=== PATIENT | male | born 1955 | race Caucasian/White ===

== ENCOUNTER 2017-04-03 22:24 | Observation (INO) | payer BC ==
[2017-04-03] MEDS ORDERED: Aspirin 81 MG Tab.Chew PO ONE (22:34)
[2017-04-03 23:22] LABS: CHLORIDE,CL 103 mmol/L (98-110)
[2017-04-03 23:23] LABS: SODIUM,NA 139 mmol/L (136-146)
[2017-04-04] MEDS ORDERED: Levofloxacin/Dextrose 5%-Water 750 MG in Premix Bag 1 BAG IV ONE (00:52)
[2017-04-04] MEDS ORDERED: Nitroglycerin 2% Oint 1 GM UD Packet TOP ONE (00:58)
[2017-04-04] MEDS ORDERED: LORazepam 2 MG/ML MDV IVPUSH ONE (01:03)
--- NOTE | 2017-04-04 01:24 | EDM.PDOC ---
ED HPI GENERAL MEDICAL PROBLEM - General Chief Complaint: Chest Pain Stated Complaint: CHEST PAIN Time Seen by Provider: 04/03/17 22:30 Source of Information: Reports: Patient History Limitations: Reports: No Limitations - History of Present Illness INITIAL COMMENTS - FREE TEXT/NARRATIVE: HISTORY AND PHYSICAL: History of present illness: [61-year-old male with a history of coronary artery disease and previous DE and stent in 2013 now presents emergency room complaining of chest pain. Patient states he has dull chest pressure which is now resolved. Onset was prior to arrival. Denies nausea vomiting diaphoresis. He states his shortness of air is at his chronic baseline. He also has sleep apnea.. No productive cough or fever. Denies pleuritic pain. Pain is not worse with movement] Review of systems: As per history of present illness and below otherwise all systems reviewed and negative. Past medical history: As per history of present illness and as reviewed below otherwise noncontributory. Surgical history: As per history of present illness and as reviewed below otherwise noncontributory. Social history: No reported history of drug or alcohol abuse. Family history: As per history of present illness and as reviewed below otherwise noncontributory. Physical exam:alert well-appearing no acute distress no diaphoresis increased work of breathing tachypnea or shortness of air apparent. 93% on room air no acute distress HEENT: Atraumatic, normocephalic, pupils reactive, negative for conjunctival pallor or scleral icterus, mucous membranes moist, throat clear, neck supple, nontender, trachea midline. Lungs:, breath sounds equal bilaterally, chest nontender.scattered rhonchi Heart: S1S2, regular, negative for clicks, rubs, or JVD. Abdomen: Soft, nondistended, nontender. Negative for masses or hepatosplenomegaly. Negative for costovertebral tenderness. Pelvis: Stable nontender. Genitourinary: Deferred. Rectal: Deferred. Extremities: Atraumatic, negative for cords or calf pain. Neurovascular unremarkable.no edema and no asymmetry Neuro: Awake, alert, oriented. Cranial nerves unremarkable. Cerebellum unremarkable. Motor and sensory unremarkable throughout. Exam nonfocal. Diagnostics: [chest x-ray with severe chronic appearing changes, interpreted by me.cannot rule out atypical pneumonia/infiltrate EKG #1 normal sinus rhythm at 70 left anterior hemiblock. No STEMI. EKG #2 interpreted by me normal sinus rhythm at 64 left anterior hemiblock no STEMI] Therapeutics: [] Impression: [dyspnea Pneumonia hyperglycemia Plan: [patient with vague shortness of breath and chest pain. He reports a productive cough . White blood cell count is unremarkable patient afebrile. 6 right is profoundly abnormal and patient knows nothing about this. He states she's never seen an abnormal chest x-ray normal and told that he had chronic changes. Blood cultures drawn and a box initiated case discussed with Dr. sheldon zarate bonding machine tender who is were of history and findings and accepts patient for inpatient admission to his service for further workup and treatment as needed. Definitive disposition and diagnosis as appropriate pending reevaluation and review of above. chest pain Pain Score (Numeric/FACES): 0 - Related Data Allergies Allergy/AdvReac Type Severity Reaction Status Date / Time No Known Allergies Allergy Verified 04/03/17 22:46 Home Meds: Home Meds Aspirin 324 mg PO DAILY 04/04/17 [History] Carvedilol [Carvedilol] 1 tab PO BID 04/04/17 [History] Clopidogrel [Plavix] 75 mg PO DAILY 04/04/17 [History] Gabapentin [Neurontin] 1 tab PO BID 04/04/17 [History] Simvastatin [Simvastatin] 40 mg PO DAILY 04/04/17 [History] Valsartan [Diovan] 80 mg PO DAILY 04/04/17 [History] buPROPion [Wellbutrin] 300 mg PO DAILY 04/04/17 [History] metFORMIN HCl [Metformin HCl ER] 1 gm PO BID 04/04/17 [History] Past Medical History HEENT History: Reports: None Cardiovascular History: Reports: High Cholesterol, Hypertension, Other (See Below) Other Cardiovascular History: Heart Attack Respiratory History: Reports: Bronchitis, Recurrent Gastrointestinal History: Reports: None Genitourinary History: Reports: Prostate Disorder Musculoskeletal History: Reports: None Neurological History: Reports: None Psychiatric History: Reports: None Endocrine/Metabolic History: Reports: Diabetes, Type II Hematologic History: Reports: None Immunologic History: Reports: None Oncologic (Cancer) History: Reports: Prostate Dermatologic History: Reports: None - Infectious Disease History Infectious Disease History: Reports: Chicken Pox, Measles - Past Surgical History Male Surgical History: Reports: Prostatectomy Musculoskeletal Surgical History: Reports: Other (See Below) Other Musculoskeletal Surgeries/Procedures:: Rotator cuff surgery Social & Family History - Family History Family Medical History: Noncontributory - Tobacco Use Smoking Status *Q: Current Every Day Smoker Years of Tobacco use: 55 Packs/Tins Daily: 0.5 - Caffeine Use Caffeine Use: Reports: Coffee - Recreational Drug Use Recreational Drug Use: No ED ROS GENERAL - Review of Systems Review Of Systems: See Below (History of present illness) ED EXAM, GENERAL - Physical Exam Exam: See Below (History of present illness) Course - Vital Signs Last Recorded V/S: Last Vital Signs Temp 37.3 C 04/04/17 03:40 Pulse 74 04/04/17 03:40 Resp 18 04/04/17 03:40 BP 124/82 04/04/17 03:40 Pulse Ox 93 L 04/04/17 03:40 - Orders/Labs/Meds Orders: Active Orders 24 hr Category Date Time Status EKG Documentation Completion [RC] STAT Care 04/03/17 22:32 Active Chest 1V Frontal [CR] Stat Exams 04/03/17 22:32 Taken CULTURE BLOOD [BC] Stat Lab 04/04/17 01:05 Received CULTURE BLOOD [BC] Stat Lab 04/04/17 01:10 Received Blood Culture x2 Reflex Set [OM.PC] Stat Oth 04/04/17 00:51 Ordered Medication Orders Bupropion HCl (Wellbutrin Sr) 150 mg PO BID DAWNA Levofloxacin/Dextrose 750 mg/ (Premix) 150 mls @ 100 mls/hr IV Q24H DAWNA Sodium Chloride (Normal Saline) 1,000 mls @ 250 mls/hr IV ASDIRECTED DAWNA Last Admin: 04/04/17 05:11 Dose: 250 mls/hr Nicotine (Habitrol) 21 mg TRDERM DAILY [facility] Labs: Laboratory Tests 04/03/17 04/03/17 04/03/17 Range/Units 22:46 22:46 22:46 WBC 9.54 (4.0-11.0) K/uL RBC 4.34 L (4.50-5.90) M/uL Hgb 14.4 (13.0-17.0) g/dL Hct 41.7 (38.0-50.0) % MCV 96.1 (80.0-98.0) fL MCH 33.2 H (27.0-32.0) pg MCHC 34.5 (31.0-37.0) g/dL RDW Std Deviation 48.2 (28.0-62.0) fl RDW Coeff of Az 14 (11.0-15.0) % Plt Count 193 (150-400) K/uL MPV 10.50 (7.40-12.00) fL Neut % (Auto) 64.7 (48.0-80.0) % Lymph % (Auto) 24.0 (16.0-40.0) % [place] % (Auto) 8.7 (0.0-15.0) % Eos % (Auto) 2.3 (0.0-7.0) % Baso % (Auto) 0.3 (0.0-1.5) % Neut # (Auto) 6.2 H (1.4-5.7) K/uL Lymph # (Auto) 2.3 (0.6-2.4) K/uL [place] # (Auto) 0.8 (0.0-0.8) K/uL Eos # (Auto) 0.2 (0.0-0.7) K/uL Baso # (Auto) 0.0 (0.0-0.1) K/uL Nucleated RBC % 0.0 /100WBC Nucleated RBCs # 0 K/uL Sodium 139 (136-146) mmol/L Potassium 4.0 (3.5-5.1) mmol/L Chloride 103 (98-110) mmol/L Carbon Dioxide 25 (21-31) mmol/L BUN 15 (6.0-23.0) mg/dL Creatinine 0.9 (0.6-1.5) mg/dL Est Cr Clr Drug Dosing 85.10 mL/min Estimated GFR (MDRD) > 60.0 ml/min Glucose 193 H (60-110) mg/dL Calcium 9.4 (8.8-10.8) mg/dL Total Bilirubin 0.4 (0.1-1.5) mg/dL AST 18 (5-40) IU/L ALT 20 (8-54) IU/L Alkaline Phosphatase 104 (40-150) Troponin I < 0.10 (0.0-0.29) NG/ML Total Protein 7.4 (6.0-8.0) g/dL Albumin 4.2 (3.4-4.8) g/dL Globulin 3.2 (2.0-3.5) g/dL Albumin/Globulin Ratio 1.3 (1.3-2.8) Meds: Medications Generic Name Dose Route Start Last Admin Trade Name Freq PRN Reason Stop Dose Admin Bupropion HCl 150 mg 04/04/17 09:00 Wellbutrin Sr PO BID DAWNA Levofloxacin/Dextrose 750 mg/ 150 mls @ 100 mls/hr 04/05/17 00:00 Premix IV Q24H DAWNA Sodium Chloride 1,000 mls @ 250 mls/hr 04/04/17 04:15 04/04/17 05:11 Normal Saline IV 250 mls/hr ASDIRECTED DAWNA Administration Nicotine 21 mg 04/04/17 09:00 Habitrol TRDERM DAILY DAWNA Discontinued Medications Generic Name Dose Route Start Last Admin Trade Name Freq PRN Reason Stop Dose Admin Aspirin 324 mg 04/03/17 22:34 04/03/17 22:53 Aspirin PO 04/03/17 22:35 324 mg ONETIME ONE Administration Levofloxacin/Dextrose 750 mg/ 150 mls @ 100 mls/hr 04/04/17 00:52 04/04/17 01 :24 Premix IV 04/04/17 02:21 100 mls/hr ONETIME ONE Administration Levofloxacin/Dextrose 750 mg/ 150 mls @ 100 mls/hr 04/04/17 04:00 Premix IV Q24H DAWNA Levofloxacin/Dextrose 750 mg/ 150 mls @ 100 mls/hr 04/04/17 04:00 Premix IV Q24H DAWNA Lorazepam 1 mg 04/04/17 01:03 04/04/17 01:23 Ativan IVPUSH 04/04/17 01:04 1 mg ONETIME ONE Administration Lorazepam 0.5 mg 04/04/17 03:06 04/04/17 05:05 Ativan PO 04/04/17 03:07 0.5 mg ONETIME ONE Administration Nicotine 21 mg 04/04/17 03:06 04/04/17 04:29 Habitrol TRDERM 04/04/17 03:07 21 mg ONETIME ONE Administration Nitroglycerin 1 gm 04/04/17 00:58 04/04/17 01:21 Nitro-Bid 2% TOP 04/04/17 00:59 1 gm ONETIME ONE Administration Departure - Departure Time of Disposition: 00:57 Disposition: Admitted As Inpatient 65 Condition: Good Clinical Impression: Pneumonia, Dyspnea, Uncontrolled diabetes mellitus, Uncontrolled hypertension - Discharge Information - My Orders Last 24 Hours: My Active Orders 04/03/17 22:32 EKG Documentation Completion [RC] STAT Chest 1V Frontal [CR] Stat 04/04/17 00:51 Blood Culture x2 Reflex Set [OM.PC] Stat 04/04/17 01:05 CULTURE BLOOD [BC] Stat 04/04/17 01:10 CULTURE BLOOD [BC] Stat - Assessment/Plan Last 24 Hours: My Active Orders 04/03/17 22:32 EKG Documentation Completion [RC] STAT Chest 1V Frontal [CR] Stat 04/04/17 00:51 Blood Culture x2 Reflex Set [OM.PC] Stat 04/04/17 01:05 CULTURE BLOOD [BC] Stat 04/04/17 01:10 CULTURE BLOOD [BC] Stat
[2017-04-04] MEDS ORDERED: Nicotine 21 MG/24 Hr Patch TRDERM ONE (03:06)
[2017-04-04] MEDS ORDERED: LORazepam 0.5 MG Tab PO ONE (03:06)
[2017-04-04] MEDS ORDERED: Levofloxacin/Dextrose 5%-Water 750 MG in Premix Bag 1 BAG IV SCH ×4 (04:00)
[2017-04-04] MEDS ORDERED: Sodium Chloride 0.9% 1,000 ML IV SCH (04:15)
[2017-04-04 06:56] LABS: CHLORIDE,CL 106 mmol/L (98-110); SODIUM,NA 139 mmol/L (136-146)
--- NOTE | 2017-04-04 07:55 | PCM.HP ---
[id number] of Service: 04/04/17 Admit Problem/Dx: Admission Diagnosis/Problem Admission Diagnosis/Problem Chest pain Source of Information: Patient History Limitations: Reports: No Limitations - History of Present Illness Initial Comments - Free Text/Narative: This 61 year old male with pmh od CAD, [place] with PCI x1 in 2013, Dm type 2, smoker , and prostate ca presented to the ED with complaints of midsternal chest pressure and pain. He reports this occurred yesterday, but had no other symptoms. He reports that for approximately 2 months he has felt chest congestion, cough and some increased SOB. He was seen by PCP in [place] who thought it may be allergy related and monitored him, when it didn't improve they considered bronchitis and put him on an inhaler and Zpak, which he felt the consistency of his sputum improved and SOB was slightly better, but he still has congested cough and then this chest pressure started. He reports the pressure worsens with a deep breath. He has no palpitations jaw pain or radiation to L arm. He has a history of prostate ca, which he underwent removal and most recently his PSA was normal. He has a family hx of ca, including his mother and sister who both had lung cancer and father who had liver cancer. 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 In the ED, WBC 9,000, BMP WNL. Troponin negative. 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 CXR was taken which showed innumberable nodular densities throughout the lungs, may represent infection or metastatic disease, linear atelectasis or scarring in the left upper lobe, no pneumothorax or effusion noted, no cardiomegaly. He will be admitted for suspected community acquired pneumonia vs metastatic disease vs silcosis. He was given Levaquin and IVFs. PCP is in [place] and he is requesting to follow up with PCP there or in [place] if further treatment is needed with speciality providers chest pain Pain Score (Numeric/FACES): 0 - Related Data Allergies/Adverse Reactions: Allergies Allergy/AdvReac Type Severity Reaction Status Date / Time No Known Allergies Allergy Verified 04/03/17 22:46 Home Medications: Home Meds Aspirin 81 mg PO DAILY 04/04/17 [History] Carvedilol 6.25 mg PO BID 04/04/17 [History] Clopidogrel [Plavix] 75 mg PO DAILY 04/04/17 [History] Fluorometholone [Flarex 0.1% Ophth Susp] 1 drop EYELF Q4H 04/04/17 [History] Gabapentin [Neurontin] 300 mg PO TID 04/04/17 [History] Simvastatin 40 mg PO DAILY 04/04/17 [History] Valsartan [Diovan] 80 mg PO DAILY 04/04/17 [History] buPROPion [Wellbutrin] 300 mg PO DAILY 04/04/17 [History] metFORMIN HCl [Metformin HCl ER] 1 gm PO BID 04/04/17 [History] Past Medical History HEENT History: Reports: None Cardiovascular History: Reports: CAD, High Cholesterol, Hypertension, [place] (with stent x1 in 2013). Denies: Afib, Blood Clots/VTE/DVT, Heart Failure Respiratory History: Reports: Bronchitis, Recurrent, Sleep Apnea, SOB (with exertion). Denies: COPD, PE Gastrointestinal History: Reports: None. Denies: Bowel Obstruction, GERD, GI Bleed, Inflammatory Bowel Disease Genitourinary History: Reports: Prostate Disorder Musculoskeletal History: Reports: None Neurological History: Reports: None. Denies: CVA, TIA Psychiatric History: Reports: None Endocrine/Metabolic History: Reports: Diabetes, Type II, Obesity/BMI 30+ Hematologic History: Reports: None Immunologic History: Reports: None Oncologic (Cancer) History: Reports: Prostate Dermatologic History: Reports: None - Infectious Disease History Infectious Disease History: Reports: Chicken Pox, Measles - Past Surgical History Male Surgical History: Reports: Prostatectomy Musculoskeletal Surgical History: Reports: Other (See Below) Other Musculoskeletal Surgeries/Procedures:: Rotator cuff surgery Social & Family History - Family History Family Medical History: Noncontributory HEENT: Reports: None Oncologic: Reports: Liver, Lung - Tobacco Use Smoking Status *Q: Current Every Day Smoker Years of Tobacco use: 55 Packs/Tins Daily: 2 (currently is quitting and down to 1/2 ppd but was smoking 2 ppd) Used Tobacco, but Quit: No Smoking Cessation Information Provided To Patient: Yes (currently on Wellbutrin) Second Hand Smoke Exposure: Yes - Caffeine Use Caffeine Use: Reports: Coffee - Recreational Drug Use Recreational Drug Use: No - Living Situation & Occupation Occupation: Employed H&P Review of Systems - Review of Systems: Review Of Systems: See Below General: Reports: No Symptoms. Denies: Fever, Chills, Weakness, Weight Loss HEENT: Reports: No Symptoms. Denies: Headaches, Sinus Congestion, Sore Throat, Visual Changes Pulmonary: Reports: Shortness of Breath, Pleuritic Chest Pain, Cough, Sputum ( yellow to white). Denies: Hemoptysis Cardiovascular: Reports: Dyspnea on Exertion. Denies: Chest Pain, Palpitations , Edema, Lightheadedness Gastrointestinal: Reports: No Symptoms. Denies: Abdominal Pain, Black Stool, Bloody Stool, Decreased Appetite, Hematemesis, Nausea, Vomiting Genitourinary: Reports: No Symptoms. Denies: Dysuria, Frequency, Burning Musculoskeletal: Reports: No Symptoms. Denies: Neck Pain Skin: Reports: No Symptoms Psychiatric: Reports: No Symptoms Neurological: Reports: No Symptoms Hematologic/Lymphatic: Reports: No Symptoms Immunologic: Reports: No Symptoms Exam - Exam Exam: See Below - Vital Signs Vital Signs: Last Vital Signs Temp 99.2 F 04/04/17 03:40 Pulse 74 04/04/17 03:40 Resp 18 04/04/17 03:40 BP 124/82 04/04/17 03:40 Pulse Ox 93 L 04/04/17 03:40 Weight: 289.1 kg - Exam Quality Assessment: Supplemental Oxygen, DVT Prophylaxis General: Alert, Oriented, Cooperative HEENT: Conjunctiva Clear, Hearing Intact, Mucosa Moist & [place], Nares Patent, Posterior Pharynx Clear, Pupils Equal, Pupils Reactive Neck: Supple, Trachea Midline, Full Range of Motion. No: Lymphadenopathy Lungs: Normal Respiratory Effort, Rhonchi (bibasilar) Cardiovascular: Regular Rate, Regular Rhythm, Normal S1, Normal S2. No: Tachycardia, Systolic Murmur GI/Abdominal Exam: Normal Bowel Sounds, Soft, Non-Tender, No Organomegaly, No Distention, No Abnormal Bruit, No Mass, Pelvis Stable, Other (obese abdomen) Back Exam: Normal Inspection, Full Range of Motion, NT Extremities: Normal Inspection, Normal Range of Motion, Non-Tender, No Pedal Edema, Normal Capillary Refill Neuro Extensive - Mental Status: Alert, Oriented x3, Normal Mood/Affect, Normal Cognition Neuro Extensive - Motor, Sensory, Reflexes: CN II-XII Intact, Normal Gait Psychiatric: Alert, Normal Affect, Normal Mood - Patient Data Lab Results Last 24 hrs: Laboratory Results - last 24 hr 04/04/17 04/04/17 04/04/17 Range/Units 01:05 01:05 06:18 WBC (4.0-11.0) K/uL RBC (4.50-5.90) M/uL Hgb (13.0-17.0) g/dL Hct (38.0-50.0) % MCV (80.0-98.0) fL MCH (27.0-32.0) pg MCHC (31.0-37.0) g/dL RDW Std Deviation (28.0-62.0) fl RDW Coeff of Az (11.0-15.0) % Plt Count (150-400) K/uL MPV (7.40-12.00) fL Neut % (Auto) (48.0-80.0) % Lymph % (Auto) (16.0-40.0) % [place]corn % (Auto) (0.0-15.0) % Eos % (Auto) (0.0-7.0) % Baso % (Auto) (0.0-1.5) % Neut # (Auto) (1.4-5.7) K/uL Lymph # (Auto) (0.6-2.4) K/uL [place] # (Auto) (0.0-0.8) K/uL Eos # (Auto) (0.0-0.7) K/uL Baso # (Auto) (0.0-0.1) K/uL Nucleated RBC % /100WBC Nucleated RBCs # K/uL Lactate 1.3 (0.20-2.00) mmol/L Sodium (136-146) mmol/L Potassium (3.5-5.1) mmol/L Chloride (98-110) mmol/L Carbon Dioxide (21-31) mmol/L BUN (6.0-23.0) mg/dL Creatinine (0.6-1.5) mg/dL Est Cr Clr Drug Dosing mL/min Estimated GFR (MDRD) ml/min Glucose (60-110) mg/dL POC Glucose 113 H (60-110) mg/dL Calcium (8.8-10.8) mg/dL Troponin I (0.0-0.29) NG/ML B-Natriuretic Peptide < 15 (<100) PG/ML 04/04/17 04/04/17 04/04/17 Range/Units 06:21 06:21 06:21 WBC 8.04 (4.0-11.0) K/uL RBC 4.18 L (4.50-5.90) M/uL Hgb 13.6 (13.0-17.0) g/dL Hct 40.2 (38.0-50.0) % MCV 96.2 (80.0-98.0) fL MCH 32.5 H (27.0-32.0) pg MCHC 33.8 (31.0-37.0) g/dL RDW Std Deviation 48.6 (28.0-62.0) fl RDW Coeff of Az 14 (11.0-15.0) % Plt Count 180 (150-400) K/uL MPV 10.70 (7.40-12.00) fL Neut % (Auto) 63.9 (48.0-80.0) % Lymph % (Auto) 25.0 (16.0-40.0) % [place]corn % (Auto) 8.7 (0.0-15.0) % Eos % (Auto) 2.2 (0.0-7.0) % Baso % (Auto) 0.2 (0.0-1.5) % Neut # (Auto) 5.1 (1.4-5.7) K/uL Lymph # (Auto) 2.0 (0.6-2.4) K/uL [place]corn # (Auto) 0.7 (0.0-0.8) K/uL Eos # (Auto) 0.2 (0.0-0.7) K/uL Baso # (Auto) 0.0 (0.0-0.1) K/uL Nucleated RBC % 0.0 /100WBC Nucleated RBCs # 0 K/uL Lactate (0.20-2.00) mmol/L Sodium 139 (136-146) mmol/L Potassium 4.1 (3.5-5.1) mmol/L Chloride 106 (98-110) mmol/L Carbon Dioxide 23 (21-31) mmol/L BUN 15 (6.0-23.0) mg/dL Creatinine 0.8 (0.6-1.5) mg/dL Est Cr Clr Drug Dosing 95.74 mL/min Estimated GFR (MDRD) > 60.0 ml/min Glucose 120 H (60-110) mg/dL POC Glucose (60-110) mg/dL Calcium 8.9 (8.8-10.8) mg/dL Troponin I < 0.10 (0.0-0.29) NG/ML B-Natriuretic Peptide (<100) PG/ML Result Diagrams: 04/04/17 06:21 04/04/17 06:21 *Q Meaningful Use (ADM) - VTE *Q VTE Criteria *Q: - VTE Risk Assess *Q Each Risk Factor Represents 1 Point: Obesity (BMI greater than 30), Serious Lung Disease Including Pneumonia, Less than 1 Month Total Score 1 Point Risk Factors: 2 Each Risk Factor Represents 2 Points: Age 60 - 74 Years, Morbid Obesity (BMI Greater than 40) Total Score 2 Point Risk Factors: 4 Each Risk Factor Represents 3 Points: None Total Score 3 Point Risk Factors: 0 Each Risk Factor Represents 5 Points: None Total Score 5 Point Risk Factors: 0 Venous Thromboembolism Risk Factor Score *Q: 6 - Stroke *Q Stroke Criteria *Q: - AMI *Q AMI Criteria *Q: - Problem List (1) Dyspnea SNOMED Code(s): 756997434 ICD Code: R06.00 - DYSPNEA, UNSPECIFIED Status: Acute Qualifiers: Dyspnea type: shortness of breath Qualified Code(s): R06.02 - Shortness of breath; R06.00 - Dyspnea, unspecified; R06.01 - Orthopnea (2) Pneumonia SNOMED Code(s): 842453732 ICD Code: J18.9 - PNEUMONIA, UNSPECIFIED ORGANISM Status: Acute Qualifiers: Pneumonia type: due to unspecified organism Laterality: bilateral Lung location: lower lobe of lung Qualified Code(s): J18.9 - Pneumonia, unspecified organism (3) Atypical chest pain SNOMED Code(s): 707641586 ICD Code: R07.89 - OTHER CHEST PAIN Status: Acute (4) HTN (hypertension) SNOMED Code(s): 77172013 ICD Code: I10 - ESSENTIAL (PRIMARY) HYPERTENSION Status: Chronic Qualifiers: Hypertension type: essential hypertension Qualified Code(s): I10 - Essential (primary) hypertension (5) CAD (coronary artery disease) SNOMED Code(s): 31095944 ICD Code: I25.10 - ATHSCL HEART DISEASE OF [place] CORONARY ARTERY W/O ANG PCTRS Status: Chronic Qualifiers: Coronary Disease-Associated Artery/Lesion type: [place] artery [place] vs. transplanted heart: [place] heart Associated angina: without angina Qualified Code(s): I25.10 - Atherosclerotic heart disease of [place] coronary artery without angina pectoris (6) DM type 2 (diabetes mellitus, type 2) SNOMED Code(s): 76020715 ICD Code: E11.9 - TYPE 2 DIABETES MELLITUS WITHOUT COMPLICATIONS Status: Chronic Qualifiers: Diabetes mellitus complication status: without complication Diabetes mellitus sap manager insulin use: without sap manager use Qualified Code(s): E11.9 - Type 2 diabetes mellitus without complications Problem List Initiated/Reviewed/Updated: Yes Orders Last 24hrs: Active Orders 24 hr Category Date Time Status Admission Status [Patient Status] [ADT] Routine ADT 04/04/17 03:10 Active Accu Check [Blood Glucose Check, Bedside] [RC] BIDAC Care 04/04/17 04:16 Active Antiembolic Devices [RC] .Routine Care 04/04/17 03:43 Active Bedrest Bathroom Privileges [RC] ASDIRECTED Care 04/04/17 03:40 Active Communication Order [RC] ROUTINE Care 04/04/17 04:16 Active Communication Order [RC] ROUTINE Care 04/04/17 04:18 Active Communication Order [RC] ROUTINE Care 04/04/17 04:19 Active EKG Documentation Completion [RC] AM Care 04/04/17 07:00 Active May Shower [RC] ASDIRECTED Care 04/04/17 03:40 Active Oxygen Therapy [RC] CONTINUOUS Care 04/04/17 03:41 Active Telemetry Monitoring [Cardiac Monitoring] [RC] . Care 04/04/17 01:20 Active DIRECTED VTE/DVT Education [RC] PER UNIT ROUTINE Care 04/04/17 03:43 Active Vital Signs [RC] Q4H Care 04/04/17 03:40 Active [place] [employer] Diet [DIET] Diet 04/04/17 Breakfast Active Abdomen Pelvis w Cont [CT] Routine Exams 04/04/17 07:32 Ordered Chest w Cont [CT] Routine Exams 04/04/17 07:32 Ordered Aspirin Med 04/04/17 09:00 Ordered 324 mg PO DAILY Carvedilol [Coreg] Med 04/04/17 09:00 Ordered 1 tab PO BID Clopidogrel [Plavix] Med 04/04/17 09:00 Ordered 75 mg PO DAILY Gabapentin [Neurontin] Med 04/04/17 09:00 Ordered 1 tab PO BID Insulin Aspart [NovoLOG] Med 04/04/17 11:30 Ordered See Protocol SUBCUT TIDAC Levofloxacin/Dextrose 5%-Water [Levaquin in D5W 750 MG/ Med 04/05/17 00:00 Active 150 ML] 750 mg Premix Bag 1 bag IV Q24H Nicotine [Habitrol] Med 04/04/17 09:00 Active 21 mg TRDERM DAILY Simvastatin [Zocor] Med 04/04/17 09:00 Ordered 40 mg PO DAILY Valsartan [Diovan] Med 04/04/17 09:00 Ordered 80 mg PO DAILY buPROPion [Wellbutrin SR] Med 04/04/17 09:00 Pending 150 mg PO BID DVT/VTE Prophylaxis Reflex [OM.PC] Routine Oth 04/04/17 03:40 Ordered Resuscitation Status Routine Resus Stat 04/04/17 03:40 Ordered Medication Orders Aspirin (Aspirin) 324 mg PO DAILY DAWNA Bupropion HCl (Wellbutrin Sr) 150 mg PO BID DAWNA Carvedilol (Coreg) mg PO BID DAWNA Clopidogrel Bisulfate (Plavix) 75 mg PO DAILY DAWNA Gabapentin (Neurontin) mg PO BID DAWNA Levofloxacin/Dextrose 750 mg/ (Premix) 150 mls @ 100 mls/hr IV Q24H DAWNA Insulin Aspart (Novolog) 0 unit SUBCUT TIDAC DAWNA PRN Reason: Protocol Nicotine (Habitrol) 21 mg TRDERM DAILY DAWNA Simvastatin (Zocor) 40 mg PO DAILY DAWNA Valsartan (Diovan) 80 mg PO DAILY DAWNA Assessment/Plan Comment:: This 61 year old male with dyspnea and chest pressure on deep breathing 1. Dyspnea: CXR revealed innumerable nodular densities, Chest/abd/pelvis CT ordered for today to further evaluate nodular densities. Considering atypical pneumonia, metastatic disease, or silicosis. Will treat with Levaquin 750 mg IV for now. Quantaferron ordered as well. 2. CAD: Continue Aspirin and Plavix and home medications 3. Dm type 2: Hold metformin. Novolog SSI TIDAC. Monitor BS with meals. 4. HTN: Continue Home medications. VTE prophylaxis: Lovenox. Dispo: 1-2 days pending improvement. Patient is waiting to be discharge after CT results this afternoon, pending results. Discharge Plan: CT of chest/abdomen and pelvis returned this afternoon, extensive pulmonary metastatic disease noted with the largest mass measuring 4x3 cm within the left suprahilar region. Osseus metastatic disease noted within the ribs and sternum. Patient was notified of these findings. After hearing news he immediately stood up and stated " I am leaving, and I am not waiting to sign papers unless they are done before I leave." He was asked if he wanted anyone with him and he said "No, I need to leave I have things to do and get done and now I know what I am up against." I asked if we can arrange appointments for him in [place] where he would like to follow up and he said, "Sure, Ill change them if I need to." I notified, Dr Pineda of this conversion and CT results. No new prescriptions at this time and to try arrange appointments for [place] as possible. We are unable to get oncology appointment until there is a pathology report. We will attempt to set up PCP appointment [place] so he is able to set up a lung mass biopsy at [facility]. <Joe Pineda - Last Filed: 04/04/17 19:27> H&P History of Present Illness - General Admit Problem/Dx: Admission Diagnosis/Problem Admission Diagnosis/Problem Chest pain Exam - Vital Signs Vital Signs: Last Vital Signs Temp 36.3 C 04/04/17 12:00 Pulse 67 04/04/17 12:21 Resp 20 04/04/17 12:00 BP 140/66 04/04/17 14:00 Pulse Ox 94 L 04/04/17 12:00 - Patient Data Lab Results Last 24 hrs: Laboratory Results - last 24 hr 04/04/17 04/04/17 04/04/17 Range/Units 01:05 01:05 06:18 WBC (4.0-11.0) K/uL RBC (4.50-5.90) M/uL Hgb (13.0-17.0) g/dL Hct (38.0-50.0) % MCV (80.0-98.0) fL MCH (27.0-32.0) pg MCHC (31.0-37.0) g/dL RDW Std Deviation (28.0-62.0) fl RDW Coeff of Az (11.0-15.0) % Plt Count (150-400) K/uL MPV (7.40-12.00) fL Neut % (Auto) (48.0-80.0) % Lymph % (Auto) (16.0-40.0) % [place] % (Auto) (0.0-15.0) % Eos % (Auto) (0.0-7.0) % Baso % (Auto) (0.0-1.5) % Neut # (Auto) (1.4-5.7) K/uL Lymph # (Auto) (0.6-2.4) K/uL [place] # (Auto) (0.0-0.8) K/uL Eos # (Auto) (0.0-0.7) K/uL Baso # (Auto) (0.0-0.1) K/uL Nucleated RBC % /100WBC Nucleated RBCs # K/uL Lactate 1.3 (0.20-2.00) mmol/L Sodium (136-146) mmol/L Potassium (3.5-5.1) mmol/L Chloride (98-110) mmol/L Carbon Dioxide (21-31) mmol/L BUN (6.0-23.0) mg/dL Creatinine (0.6-1.5) mg/dL Est Cr Clr Drug Dosing mL/min Estimated GFR (MDRD) ml/min Glucose (60-110) mg/dL POC Glucose 113 H (60-110) mg/dL Calcium (8.8-10.8) mg/dL Troponin I (0.0-0.29) NG/ML B-Natriuretic Peptide < 15 (<100) PG/ML 04/04/17 04/04/17 04/04/17 Range/Units 06:21 06:21 06:21 WBC 8.04 (4.0-11.0) K/uL RBC 4.18 L (4.50-5.90) M/uL Hgb 13.6 (13.0-17.0) g/dL Hct 40.2 (38.0-50.0) % MCV 96.2 (80.0-98.0) fL MCH 32.5 H (27.0-32.0) pg MCHC 33.8 (31.0-37.0) g/dL RDW Std Deviation 48.6 (28.0-62.0) fl RDW Coeff of Az 14 (11.0-15.0) % Plt Count 180 (150-400) K/uL MPV 10.70 (7.40-12.00) fL Neut % (Auto) 63.9 (48.0-80.0) % Lymph % (Auto) 25.0 (16.0-40.0) % [place] % (Auto) 8.7 (0.0-15.0) % Eos % (Auto) 2.2 (0.0-7.0) % Baso % (Auto) 0.2 (0.0-1.5) % Neut # (Auto) 5.1 (1.4-5.7) K/uL Lymph # (Auto) 2.0 (0.6-2.4) K/uL [place] # (Auto) 0.7 (0.0-0.8) K/uL Eos # (Auto) 0.2 (0.0-0.7) K/uL Baso # (Auto) 0.0 (0.0-0.1) K/uL Nucleated RBC % 0.0 /100WBC Nucleated RBCs # 0 K/uL Lactate (0.20-2.00) mmol/L Sodium 139 (136-146) mmol/L Potassium 4.1 (3.5-5.1) mmol/L Chloride 106 (98-110) mmol/L Carbon Dioxide 23 (21-31) mmol/L BUN 15 (6.0-23.0) mg/dL Creatinine 0.8 (0.6-1.5) mg/dL Est Cr Clr Drug Dosing 95.74 mL/min Estimated GFR (MDRD) > 60.0 ml/min Glucose 120 H (60-110) mg/dL POC Glucose (60-110) mg/dL Calcium 8.9 (8.8-10.8) mg/dL Troponin I < 0.10 (0.0-0.29) NG/ML B-Natriuretic Peptide (<100) PG/ML 08/04/17 Range/Units 11:00 WBC (4.0-11.0) K/uL RBC (4.50-5.90) M/uL Hgb (13.0-17.0) g/dL Hct (38.0-50.0) % MCV (80.0-98.0) fL MCH (27.0-32.0) pg MCHC (31.0-37.0) g/dL RDW Std Deviation (28.0-62.0) fl RDW Coeff of Az (11.0-15.0) % Plt Count (150-400) K/uL MPV (7.40-12.00) fL Neut % (Auto) (48.0-80.0) % Lymph % (Auto) (16.0-40.0) % [place] % (Auto) (0.0-15.0) % Eos % (Auto) (0.0-7.0) % Baso % (Auto) (0.0-1.5) % Neut # (Auto) (1.4-5.7) K/uL Lymph # (Auto) (0.6-2.4) K/uL [place] # (Auto) (0.0-0.8) K/uL Eos # (Auto) (0.0-0.7) K/uL Baso # (Auto) (0.0-0.1) K/uL Nucleated RBC % /100WBC Nucleated RBCs # K/uL Lactate (0.20-2.00) mmol/L Sodium (136-146) mmol/L Potassium (3.5-5.1) mmol/L Chloride (98-110) mmol/L Carbon Dioxide (21-31) mmol/L BUN (6.0-23.0) mg/dL Creatinine (0.6-1.5) mg/dL Est Cr Clr Drug Dosing mL/min Estimated GFR (MDRD) ml/min Glucose (60-110) mg/dL POC Glucose 145 H (60-110) mg/dL Calcium (8.8-10.8) mg/dL Troponin I (0.0-0.29) NG/ML B-Natriuretic Peptide (<100) PG/ML Result Diagrams: 04/04/17 06:21 04/04/17 06:21 *Q Meaningful Use (ADM) - VTE *Q VTE Criteria *Q: - Stroke *Q Stroke Criteria *Q: - AMI *Q AMI Criteria *Q: Orders Last 24hrs: Active Orders 24 hr Category Date Time Status Admission Status [Patient Status] [ADT] Routine ADT 04/04/17 03:10 Active Accu Check [Blood Glucose Check, Bedside] [RC] BIDAC Care 04/04/17 04:16 Active Antiembolic Devices [RC] .Routine Care 04/04/17 03:43 Active Bedrest Bathroom Privileges [RC] ASDIRECTED Care 04/04/17 03:40 Active Communication Order [RC] ROUTINE Care 04/04/17 04:16 Active Communication Order [RC] ROUTINE Care 04/04/17 04:18 Active Communication Order [RC] ROUTINE Care 04/04/17 04:19 Active EKG Documentation Completion [RC] AM Care 04/04/17 07:00 Active May Shower [RC] ASDIRECTED Care 04/04/17 03:40 Active Oxygen Therapy [RC] CONTINUOUS Care 04/04/17 03:41 Active Ready for Discharge [RC] PER UNIT ROUTINE Care 04/04/17 14:57 Active Telemetry Monitoring [Cardiac Monitoring] [RC] . Care 04/04/17 01:20 Active DIRECTED VTE/DVT Education [RC] PER UNIT ROUTINE Care 04/04/17 03:43 Active Vital Signs [RC] Q4H Care 04/04/17 03:40 Active QUANTIFERRON TB GOLD [REF] Routine Lab 04/04/17 11:10 Received DVT/VTE Prophylaxis Reflex [OM.PC] Routine Oth 04/04/17 03:40 Ordered Resuscitation Status Routine Resus Stat 04/04/17 03:40 Ordered - Free Text/Narrative Note: I have examined and rexamined this patient. Prior to his CT scans, I had discussed the diagnostic possibilities of what his chest xray represented and he desired more answers, which is why the CT Scans were done. I have discussed his lab testing and his radiology results with Catarina LAMBERT. I concur with her conclusions and her plans.
[2017-04-04] MEDS ORDERED: Clopidogrel 75 MG Tab PO SCH (09:00)
[2017-04-04] MEDS ORDERED: Carvedilol 6.25 MG Tab PO SCH (09:00)
[2017-04-04] MEDS ORDERED: buPROPion 150 MG Tab.SR PO SCH (09:00)
[2017-04-04] MEDS ORDERED: Nicotine 21 MG/24 Hr Patch TRDERM SCH (09:00)
[2017-04-04] MEDS ORDERED: Aspirin 81 MG Tab.Chew PO SCH ×2 (09:00→21:00)
[2017-04-04] MEDS ORDERED: Gabapentin 300 MG Cap PO SCH (09:00)
[2017-04-04] MEDS ORDERED: buPROPion 150 MG Tab.ER PO SCH (10:45)
[2017-04-04] MEDS ORDERED: Insulin Aspart 100 Units/ML 3 ML Pen SUBCUT SCH (11:30)
[2017-04-04] MEDS ORDERED: Iopamidol 755 MG/ML 500 ML Multipack Bottle IVPUSH STA (12:08)
[2017-04-04] MEDS: Aspirin 81 MG Tab.Chew PO SCH ×2 (12:23→13:23)
[2017-04-04] MEDS: Simvastatin 40 MG Tab PO SCH ×2 (12:23→13:23)
[2017-04-04] MEDS ORDERED: Acetaminophen 325 MG Tab PO PRN (12:30)
--- NOTE | 2017-04-04 14:26 | CT ---
CT of the chest, abdomen and pelvis with contrast. HISTORY: Evaluation for neoplasm TECHNIQUE: Axial CT images were obtained of the chest, abdomen and pelvis following administration o f 100 mL of Isovue-370 in the right wrist without complication. Coronal and sagittal reconstructions obtained. FINDINGS: Chest: There are extensive small spiculated nodules throughout the lungs bilaterally. There is a lef t suprahilar mass within the upper lobe measuring 4 x 3 cm. There is a 1.7 cm subcarinal lymph node noted. Mild right hilar fullness also present. No axillary lymphadenopathy. Thoracic aorta is normal in caliber. The central pulmonary arteries are patent. Mild coronary artery calcifications are note d. Abdomen: The liver, spleen, and pancreas appear unremarkable. Trace nodular thickening of the left a drenal gland. The gallbladder appear normal. There is no bulky retroperitoneal lymphadenopathy. No a bdominal ascites. The kidneys enhance and function symmetrically without evidence of obstructive uropathy. Small renal cortical cysts noted. Punctate nonobstructing stone within the lower pole of the right kidney. Pelvis: Prostatectomy changes noted. The large and small bowel are normal in caliber without evidenc e of obstruction. No pericolonic inflammation or stranding. The appendix is normal. No bulky pelvic lymphadenopathy or free pelvic fluid. The urinary bladder appears normal. Borderline right inguinal lymph nodes noted. Degenerative changes noted within the hips bilaterally. Anterior bridging osteophytes noted within t he SI joints. There are several mixed sclerotic and lucent lesions within the ribs bilaterally in th e sternum. IMPRESSION: 1. Extensive pulmonary metastatic disease noted with the largest mass measuring 4 x 3 cm within the left suprahilar region. 2. Osseous metastatic disease noted within the ribs and sternum. 3. Prostatectomy. 4. Borderline right inguinal lymph nodes.
[2017-04-04 14:42] VITALS: BP 140/66
--- NOTE | 2017-04-04 19:16 | CR ---
EXAM DATE: 04/04/17 PATIENT'S AGE: 61 Patient: RESHMA DE OLIVEIRA Facility: [place], [place] Site . Site : [id number] Study: XRay Chest [id number]/[id number] 12:17:15 AM Ordering Physician: Narendra Mann Final Report: Indication: Pain, shortness of breath Technique: Chest 1 view Comparison: None Findings/Impression: Normal cardiomediastinal silhouette. Innumerable nodular densities throughout the lungs may represent infection or metastatic disease. Linear atelectasis or scarring in the left upper lobe. No pneumothorax or effusion. Osseous structures appear intact. Dictated by Sol Doran MD @ Apr 04 2017 12:18AM (Electronic Signature) Report Signed by Proxy. SCOUT
[2017-04-04] MEDS ORDERED: Simvastatin 40 MG Tab PO SCH (21:00)
[2017-04-05] MEDS ORDERED: Levofloxacin/Dextrose 5%-Water 750 MG in Premix Bag 1 BAG IV SCH ×2
== END 2017-04-04 15:30 | disposition home or self-care (01) ==
LOC: MW.ED 22:24 → MW.MS 04-04 00:24 → UNDOADMOB 04-04 00:24 → INTOOBSV 04-04 00:54 → MW.MS 04-04 00:54 → OBSVTOIN 04-04 00:54
PROVIDERS: ADMIT Family Medicine; ATTEND Family Medicine
DX: C34.02 Malignant neoplasm of left main bronchus (principal); C79.51 Secondary malignant neoplasm of bone; J18.9 Pneumonia, unspecified organism; I25.10 Atherosclerotic heart disease of native coronary artery without angina pectoris; I25.2 Old myocardial infarction; I10 Essential (primary) hypertension; E11.9 Type 2 diabetes mellitus without complications; E78.00 Pure hypercholesterolemia, unspecified; G47.30 Sleep apnea, unspecified; F17.210 Nicotine dependence, cigarettes, uncomplicated; Z85.46 Personal history of malignant neoplasm of prostate; Z79.02 Long term (current) use of antithrombotics/antiplatelets; Z79.82 Long term (current) use of aspirin; Z79.84 Long term (current) use of oral hypoglycemic drugs; Z79.899 Other long term (current) drug therapy; Z90.79 Acquired absence of other genital organ(s); Z98.890 Other specified postprocedural states
CPT/HCPCS: 36415; 71010; 71260; 74177; 80048; 80053; 82962; 83605; 83880; 84484; 85025; 86480; 87040; 93005; 96365; 96375; 99285; A9270; G0378; J1956; J2060; J7040; Q9967